=== PATIENT | male | born 1955 | race African-American/Black ===

== ENCOUNTER 2016-11-13 09:32 | Emergency (ER) | payer MEDICARE, OTHER ==
[~2016-11-13] VITALS: Ht 185.4 cm; Wt 77.0 kg
[2016-11-13 09:39] VITALS: Ht 185.4 cm; Wt 77.0 kg
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
== END 2016-11-13 12:40 | disposition home or self-care (01) ==
LOC: FTE 09:32
DX: T16.1XXA Foreign body in right ear, initial encounter (principal); F17.210 Nicotine dependence, cigarettes, uncomplicated; X58.XXXA Exposure to other specified factors, initial encounter; Y92.9 Unspecified place or not applicable

== ENCOUNTER 2017-04-06 14:44 | Emergency (ER) | payer MEDICARE, OTHER ==
[~2017-04-06] VITALS: Ht 185.4 cm; Wt 75.0 kg
[2017-04-06 14:55] VITALS: Ht 185.4 cm; Wt 75.0 kg
[2017-04-06] MEDS ORDERED: LIDOCAINE 1% (MDV) 20 ML INJ SC ONE (16:30)
[2017-04-06] MEDS ORDERED: ONDANSETRON (ODT) 4 MG TAB ODT STA (16:38)
[2017-04-06] MEDS ORDERED: HYDROCODONE/APAP (5/325) TAB PO ONE (17:00)
[2017-04-06] MEDS ORDERED: SULF1TAB31 PO (17:19)
[2017-04-06] MEDS ORDERED: CEPH-443 PO (17:19)
[2017-04-06] MEDS ORDERED: IBUP800T25 PO (17:19)
--- NOTE | 2017-04-06 18:39 | ERD ---
ER Documentation Chief Complaint Chief Complaint Pt with abcess to below buttocks X 3 days. HPI 61-year-old male complaining of abscess to buttocks 1 week. Patient describes site is painful and his attempted to use warm compresses with no alleviation of symptoms. Patient has been taking antibiotics but stopped a couple days ago as they did not seem to be helping. Not had an abscess like this in the past. Denies fever. Denies change in urination or bowel movement. Denies abdominal pain. Denies medical problems. Edges: Tetracycline.. Surgical history: Abdominal exploratory surgery. ROS All systems reviewed and are negative except as per history of present illness. Medications Home Meds Active Scripts Ibuprofen* (Motrin*) 800 Mg Tab, 800 MG PO Q6, #30 TAB Prov:TEMO THURSTON PA-C 04/06/17 Sulfamethoxazole/Trimethoprim* (Bactrim Ds* Tablet) 1 Each Tablet, 1 TAB PO BID , #14 TAB Prov:TEMO THURSTON PA-C 04/06/17 Cephalexin* (Keflex*) 500 Mg Capsule, 500 MG PO QID for 7 Days, CAP Prov:TEMO THURSTON PA-C 04/06/17 Allergies Allergies: Coded Allergies: tetracycline (Verified Allergy, Unknown, 11/13/16) PMhx/Soc History of Surgery: No Anesthesia Reaction: No Hx Neurological Disorder: No Hx Respiratory Disorders: No Hx Cardiac Disorders: No Hx Psychiatric Problems: No Hx Miscellaneous Medical Probl: No Hx Alcohol Use: No Hx Substance Use: No Hx Tobacco Use: No Smoking Status: Never smoker Physical Exam Vitals Vital Signs Date Time Temp Pulse Resp B/P Pulse Ox O2 Delivery O2 Flow Rate FiO2 04/06/17 14:55 97.0 76 14 125/75 97 Physical Exam GENERAL: The patient is well-appearing, well-nourished, in no acute distress CHEST: Clear to auscultation bilaterally. There are no rales, wheezes or rhonchi. HEART: Regular rate and rhythm. No murmurs, clicks, rubs or gallops. No S3 or S4. ABDOMEN:Soft, nontender and nondistended. Good bowel sounds. No rebound or guarding. No gross peritonitis. No gross organomegaly or masses. No Rivera sign or McBurney point tenderness. BACK: No midline or flank tenderness. SKIN: Abscess noted to left inferior buttocks. Mild induration with fluctuance. Results 24 hrs Current Medications Medications (Trade) Dose Ordered Sig/Concetta Route PRN Reason Start Time Stop Time Status Last Admin Dose Admin Lidocaine (Xylocaine 1% (Mdv) 20 ml) 20 ml ONCE ONCE SC 04/06/17 16:30 04/06/17 16:31 DC Acetaminophen/ Hydrocodone Bitart ([place] (5/325)) 1 tab ONCE ONCE PO 04/06/17 17:00 04/06/17 17:01 DC 04/06/17 16:49 Ondansetron HCl (Zofran Odt) 4 mg ONCE STAT ODT 04/06/17 16:38 04/06/17 16:39 DC 04/06/17 16:49 Procedures/MDM ER course: Site cleaned with Betadine. 3 cc of plain lidocaine injected into the wound. Small incision made and purulent discharge extracted. Locules were broken up with hemostat. Iodoform packing placed. Pressure bandage applied. MDM: 61-year-old male complaining of abscess. Up-to-date on tetanus. Low suspicion for deep tracking abscess as vital signs are stable and exam is non- concerning. Patient is told to return in 2 days for repacking of wound. I have low suspicion for sepsis. Patient is discharged with strict ER precautions and antibiotics. Patient is told symptoms change or worsen to return immediately to the ER. All questions answered at discharge. Departure Diagnosis: Primary Impression: Abscess Condition: Stable Patient Instructions: Abscess, Incision And Drainage Referrals: [facility] YOU HAVE RECEIVED A MEDICAL SCREENING EXAM AND THE RESULTS INDICATE THAT YOU DO NOT HAVE A CONDITION THAT REQUIRES URGENT TREATMENT IN THE EMERGENCY DEPARTMENT. FURTHER EVALUATION AND TREATMENT OF YOUR CONDITION CAN WAIT UNTIL YOU ARE SEEN IN YOUR DOCTORS OFFICE WITHIN THE NEXT 1-2 DAYS. IT IS YOUR RESPONSIBILITY TO MAKE AN APPOINTMENT FOR FOLOW-UP CARE. IF YOU HAVE A PRIMARY DOCTOR --you should call your primary doctor and schedule an appointment IF YOU DO NOT HAVE A PRIMARY DOCTOR YOU CAN CALL OUR PHYSICIAN REFERRAL HOTLINE AT IF YOU CAN NOT AFFORD TO SEE A PHYSICIAN YOU CAN CHOSE FROM THE FOLLOWING [facility] CLINICS [facility] [address] [facility]. [facility] [address] [address] [facility] [address] [facility] [address] [facility]. [facility] [address] Additional Instructions: FOLLOW UP WITH YOUR PRIMARY CARE PHYSICIAN TOMORROW.Return to this facility if you are not improving as expected. TEMO THURSTON PA-C Apr 06, 2017 18:39
== END 2017-04-06 17:59 | disposition home or self-care (01) ==
LOC: FTE 14:44
DX: L02.31 Cutaneous abscess of buttock (principal)

== ENCOUNTER 2018-06-22 06:21 | Emergency (ER) | payer OTHER ==
[~2018-06-22] VITALS: Ht 185.4 cm; Wt 76.8 kg
[~2018-06-22 06:21] MED LIST: CEPH-443 PO; TAMS-14 PO
[2018-06-22 06:24] VITALS: Ht 185.4 cm; Wt 76.8 kg
[2018-06-22] MEDS ORDERED: CEPH-443 PO (09:27)
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
[2018-06-22 09:41] VITALS: BP 118/59; PULSE 59; RESP 18
== END 2018-06-22 09:42 | disposition home or self-care (01) ==
LOC: FTE 06:21
DX: R10.9 Unspecified abdominal pain (principal); F17.210 Nicotine dependence, cigarettes, uncomplicated
CPT/HCPCS: 36415; 74018; 80053; 81001; 83690; 85025